=== PATIENT | male | born 1975 | race Two or more races ===

== ENCOUNTER 2017-03-09 09:40 | Day surgery (SDC) | payer OTHER ==
--- NOTE | 2017-03-08 13:43 | Pre-Procedure Note/Attestation ---
Pre-Procedure Note/Attestation Complete Prior to Procedure Planned Procedure: right Procedure Narrative: rt wrist dorsal ganglion cyst resection Indications for Procedure Pre-Operative Diagnosis: rt wrist dorsal ganglion cyst Attestation I attest that I discussed the nature of the procedure; its benefits; risks and complications; and alternatives (and the risks and benefits of such alternatives ), prior to the procedure, with the patient (or the patient's legal medicare sales representative). I attest that, if there was a reasonable possibility of needing a blood transfusion, the patient (or the patient's legal medicare sales representative) was given the [facility] standardized written summary, pursuant to the Dylan Jermaine Blood Safety Act ([place] Health and Safety Code # 1645, as amended). I attest that I re-evaluated the patient just prior to the surgery and that there has been no change in the patient's H&P, except as documented below: NONE SHANE BENÍTEZ Mar 08, 2017 13:43
[2017-03-09] VITALS (11 sets, daily range): BP systolic 101–132; BP diastolic 60–87
[~2017-03-09] VITALS: Ht 165.1 cm; Wt 71.2 kg
[~2017-03-09 09:40] MED LIST: NKM; ceFAZolin 1gm in D5W 55ml IVP ONE; celeBREX 200mg Cap **SURGERY PATIENTS ONLY ORAL ONE; oxyCONTIN 20mg tab ORAL ONE
[2017-03-09] MEDS ORDERED: [UNRECOGNIZED DRUG - REMARK] PO (10:22)
[2017-03-09] MEDS ORDERED: LR 1000ml 1,000 ML IVLG SCH (11:34)
--- NOTE | 2017-03-09 11:36 | Anethesia Preoperative Eval ---
Anesthesia Pre-op PMH/ROS General Date of Evaluation: Mar 09, 2017 Time of Evaluation: 11:59 Anesthesiologist: Frank ASA Score: ASA 2 Mallampati Score Class I : Soft palate, uvula, fauces, pillars visible Class II: Soft palate, uvula, fauces visible Class III: Soft palate, base of uvula visible Class IV: Only hard plate visible Mallampati Classification: Class II Surgeon: Torey Diagnosis: R Wrist Gangloin Cyst Surgical Procedure: R Wrist Gangloin Cyst Removal Anesthesia History: none Family History: no anesthesia problems Allergies: Coded Allergies: LATEX (Verified Allergy, Severe, 03/09/17) bumps on the skin Medications: see eMAR Past Medical History Cardiovascular: Reports: other - HL PSxH Narrative: L Wrist SX Anesthesia Pre-op Phys. Exam Physician Exam Last Vital Signs Date Time Temp Pulse Resp B/P (MAP) Pulse Ox O2 Delivery O2 Flow Rate FiO2 03/09/17 10:16 97.5 65 18 119/79 99 Room Air Constitutional: NAD Neurologic: CN 2-12 intact Cardiovascular: RRR Respiratory: CTA Gastrointestinal: S/NT/ND Airway Exam Mallampati Score: Class II MO: limited ROM: full Teeth: intact Anesthesia Pre-op A/P Risk Assessment & Plan Assessment: ASA 2 Plan: GA, BIS Status Change Before Surgery: No Pre-Antibiotics Dru Gram Ancef IV Given Within 1 Hr of Incision: Yes Time Given: 12:16 Solitario Marie MD Mar 09, 2017 11:36
[2017-03-09] MEDS ORDERED: Hydromorphone 0.5mg/0.5ml inj IVP PRN (11:45)
[2017-03-09] MEDS ORDERED: Metoclopramide 10mg/2ml Inj IVP PRN (11:45)
[2017-03-09] MEDS ORDERED: Tylenol #3 tab (300mg/30mg) ORAL PRN (11:45)
[2017-03-09] MEDS ORDERED: Ketorolac 30mg Inj IV PRN (11:45)
[2017-03-09] MEDS ORDERED: Norco 7.5mg/325mg tab ORAL PRN (11:45)
[2017-03-09] MEDS ORDERED: Meperidine 25mg/0.5ml Inj (FOR RIGORS ONLY) IV PRN (11:45)
[2017-03-09] MEDS ORDERED: Atropine Inj 1mg/10ml Syr IV PRN (11:45)
[2017-03-09] MEDS ORDERED: LORazepam Inj 2mg/ml 1ml IV PRN (11:45)
[2017-03-09] MEDS ORDERED: DiphenhydrAMINE 50mg/ml Inj IVP PRN (11:45)
[2017-03-09] MEDS ORDERED: fentaNYL 100 mcg/2 mL IV PRN (11:45)
[2017-03-09] MEDS ORDERED: HYDROmorphone 1mg/ml Carpuject SUBQ PRN (11:45)
[2017-03-09] MEDS ORDERED: Norco 5mg/325mg tab ORAL PRN ×2 (11:45)
[2017-03-09] MEDS ORDERED: Ketorolac 60mg Inj IV PRN (11:45)
[2017-03-09] MEDS ORDERED: Midazolam 2mg/2ml Inj IVP PRN (11:45)
[2017-03-09] MEDS ORDERED: D5 1/2NS 1,000 ML IV SCH (11:45)
[2017-03-09] MEDS ORDERED: oxyCODONE HCL/Acetaminophen 5/325mg ORAL PRN (11:45)
[2017-03-09] MEDS ORDERED: Bacitracin 50000 Units Vial ONE (11:47)
[2017-03-09] MEDS ORDERED: Bacitracin Oint 15gm Tube TOPIC ONE (11:47)
[2017-03-09] MEDS ORDERED: Lidocaine 1% Plain 30 ml INJ ONE (11:47)
[2017-03-09] MEDS ORDERED: Lidocaine 1% 10mg/ml/Epi 0.005mg/ml 30ml vial INJ ONE (11:57)
[2017-03-09] MEDS ORDERED: Sterile Water Irrig 1000ml IRRIG ONE (12:00)
[2017-03-09] MEDS ORDERED: Dexamethasone 4mg/ml vial ONE (12:00)
[2017-03-09] MEDS ORDERED: LR 1000ml ONE (12:00)
[2017-03-09] MEDS ORDERED: Propofol 10mg/ml 20ml IV ONE (12:00)
[2017-03-09] MEDS ORDERED: Lidocaine 1% MPF 10mg/ml 5ml ONE (12:00)
[2017-03-09] MEDS ORDERED: Midazolam 2mg/2ml Inj ONE (12:00)
[2017-03-09] MEDS ORDERED: NS Irrig 1000ml ONE (12:00)
[2017-03-09] MEDS ORDERED: Bupivacaine w/Epi 0.5% 30ml Vial INJ ONE (12:15)
--- NOTE | 2017-03-09 12:34 | Immediate Post-Op Evaluation ---
Immediate Post-Op Evalulation Immediate Post-Op Evalulation Procedure: R Wrist Gangloin Cyst Removal Date of Evaluation: Mar 09, 2017 Time of Evaluation: 13:10 IV Fluids: 600 LR Blood Products: 0 Estimated Blood Loss: 3 Urinary Output: 0 Blood Pressure Systolic: 103 Blood Pressure Diastolic: 60 Pulse Rate: 54 Respiratory Rate: 16 O2 Sat by Pulse Oximetry: 100 Temperature (Fahrenheit): 97 Pain Score (1-10): 1 Nausea: No Vomiting: No Complications 0 Patient Status: awake, reacts, patent, extubated, none Hydration Status: adequate Dru Gram Ancef IV Given Within 1 Hr of Incision: Yes Time Given: 12:16 Solitario Marie MD Mar 09, 2017 12:34
--- NOTE | 2017-03-09 12:38 | 48 Hour Post Anesthesia Eval ---
Post Anesthesia Evaluation Procedure: R Wrist Gangloin Cyst Removal Date of Evaluation: Mar 09, 2017 Time of Evaluation: 15:14 Blood Pressure Systolic: 118 0: 76 Pulse Rate: 54 Respiratory Rate: 18 Temperature (Fahrenheit): 98.2 O2 Sat by Pulse Oximetry: 100 Airway: patent Nausea: No Vomiting: No Pain Intensity: 1 Hydration Status: adequate Cardiopulmonary Status: Stable Mental Status/LOC: patient returned to baseline Follow-up Care/Observations: 0 Post-Anesthesia Complications: 0 Follow-up care needed: ready to discharge Solitario Marie MD Mar 09, 2017 12:38
--- NOTE | 2017-03-09 12:56 | Brief Operative Note ---
Immediate Post Operative Note Operative Note Chief Complaint: rt wrist pain Pre-op Diagnosis: rt wrist dorsal ganglion cyst Procedure: rt wrist dorsal ganglion cyst resection Post-op Diagnosis: same as pre-op Findings: consistent w/pre-op dx studies Surgeon: md kaylyn Mixing Plant Operator: gabi robles Anesthesiologist: md Mahendra Anesthesia: general Specimen: yes Complications: none Condition: stable Fluids: NS Estimated Blood Loss: minimal Drains: none Implant(s) used?: No HAILEY ROBLES Mar 09, 2017 12:56
--- NOTE | 2017-03-10 00:30 | Operative Note - Dictated ---
DATE OF OPERATION: 03/09/2017 PREOPERATIVE DIAGNOSIS: Right wrist recurrent dorsal ganglion cyst. POSTOPERATIVE DIAGNOSES: 1. Right wrist recurrent dorsal ganglion cyst. 2. 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 PROCEDURE PERFORMED: 1. Revision right dorsal ganglion cyst resection with excision of extensive scar tissue (extra 30% time was used due to extensive scar in the area and revision nature of this procedure). 2. Tenolysis of the common extensors of the right wrist total joint. SURGEON: Doe Lema M.D. HEALTH PROMOTION MANAGER: Jeanne Flores PA-C ANESTHESIOLOGIST: Solitario Marie M.D. ANESTHESIA: General LMA anesthesia. EBL: Less than 20 mL. COMPLICATIONS: None. TOURNIQUET TIME: 25 minutes. BRIEF HISTORY: The patient is a pleasant 42-year-old gentleman who had a dorsal wrist ganglion resected previously. He did well for a short period of time and subsequently, he developed pain again. Updated MRI showed a larger cyst over the dorsal ganglion between the extensor tendons. After full discussion of the risks and benefits of the surgery and complications associated with it including infection, bleeding, neurovascular complication, possibility of numbness, tingling, scar sensitivity, hypesthesias, recurrence of the cyst, and other complications that may arise, he opted for surgical treatment as described above. OPERATIVE PROCEDURE: The patient was brought to the operative room table and was placed supine. All pressure points were well padded. General LMA anesthesia was induced. The right wrist was prepped and draped in the usual sterile fashion. Standard incision was made over the previous resection. This was extremely scarred in. A gentle dissection was performed so that there is no damage to the cutaneous nerves. The tendons were scarred in. The tendon had to be dissected and tenolysis of the extensor tendons were performed in this fashion. At this point, the common extensor tendons were identified and they divided, and some were retracted radially and some were retracted medially. The cyst could be seen underneath at the level of the scapholunate joint. There was some additional scarring at the level of the lunocapitate area. The cyst could be visualized. At this point, dissection was made around the cyst and this was resected. The stalk was then followed all way down to the scapholunate joint and this was resected. The scapholunate area was then opened and marsupialized. Extensive scar resection was performed. The cyst and the scars were sent for pathology evaluation. The tenolysis of the extensor tendons was performed. Wounds were thoroughly irrigated using copious amount of fluid. The area was injected with 0.5% Marcaine with epinephrine for postoperative pain management. The wound was closed using 3-0 interrupted horizontal mattress sutures. Sterile soft dressing was applied. The patient was taken to recovery room in stable condition. Doe Lema M.D. DR: Stanford JOB#: [id number] CC:
== END 2017-03-09 15:45 | disposition home or self-care (01) ==
LOC: SUR 09:40
DX: M67.431 Ganglion, right wrist (principal); L90.5 Scar conditions and fibrosis of skin; M51.86 Other intervertebral disc disorders, lumbar region; G89.29 Other chronic pain; M54.9 Dorsalgia, unspecified; R00.1 Bradycardia, unspecified; E78.5 Hyperlipidemia, unspecified; Z91.040 Latex allergy status
CPT/HCPCS: 25112; 25295; J0690; J1100; J2250; J2405; J2704; J7120; 94003; 94150